=== PATIENT | female | born 1980 | race Caucasian/White ===

== ENCOUNTER → 2016-06-11 | Outpatient (CLI) | payer BC ==
[~2016-06-11] MED LIST: CALC500C70 PO; INSDGI SC; INSUINJ14 SC; LORA-741 PO; MAGN400T6 PO; MISCCAP80 PO; MULT-506 PO; OMEG10007 PO; RANI150T3 PO; RIFA200T2 PO; ZINC1TAB4 PO
== END | disposition home or self-care (01) ==
LOC: C.PAPS 10:19
PROVIDERS: ATTEND Obstetrics & Gynecology
DX: Z01.419 Encounter for gynecological examination (general) (routine) without abnormal findings (principal); R87.612 Low grade squamous intraepithelial lesion on cytologic smear of cervix (LGSIL)

== ENCOUNTER → 2016-06-27 | Outpatient (CLI) | payer BC | END | disposition home or self-care (01) | LOC: C.PATHSPEC 13:17 | PROVIDERS: ATTEND Obstetrics & Gynecology | DX: R87.612 Low grade squamous intraepithelial lesion on cytologic smear of cervix (LGSIL) (principal) ==

== ENCOUNTER → 2016-08-19 | Day surgery (SDC) | payer BC ==
[2016-08-02 10:52] VITALS: Ht 167.6 cm; Wt 66.8 kg
[~2016-08-19] VITALS: Ht 167.6 cm; Wt 66.8 kg
[~2016-08-19] MED LIST changes: +ACETIC ACID 4% (WHITE VINEGAR) 30ML ONE; +ATROPINE SULFATE 0.1 MG/ML 5ML SYR IV PRN; +EpHEDrine SULFATE INJ 50 MG/ML AMP IV PRN; +FENTANYL CITRATE INJ 50 MCG/1 ML 2 ML VIAL IV PRN; +FENTANYL CITRATE INJ 50 MCG/1 ML 2 ML VIAL ONE; +FERRIC SUBSULFATE 8 GM VIAL ONE; +GLYCOPYRROLATE INJ 0.2 MG/ML VIAL ONE; +IBUPROFEN 600 MG TAB PO PRN; +INSULIN HUMAN REGULAR PER UNIT 2 UNITS in SYRINGE 0 ML IV STA; +IODINE SOLN STRONG 14 ML ONE; +KETOROLAC TROMETHAMINE 30 MG/ML VIAL IV. PRN; +KETOROLAC TROMETHAMINE 30 MG/ML VIAL ONE; +LACTATED RINGER'S 1000ML 1,000 ML IV SCH; +LIDO 2%/EPINEPHRINE 1:100000 20 ML VIAL INFIL ONE; +LIDOCAINE HCL 2% 2 ML VIAL (20MG/ML) ONE; +MIDAZOLAM HCL 1 MG/ML 2ML VIAL ONE; +NEOSTIGMINE METHYLSULFATE 5 MG/5 ML SYR ONE; +NovoLIN-R INSULIN PER UNIT CHARGE ONE; +ONDANSETRON INJ 2 MG/ML 2 ML VIAL IV PRN; +ONDANSETRON INJ 2 MG/ML 2 ML VIAL ONE; +OXYCODONE/ACETAMINOPHEN 5-325 TAB PO PRN; +PROPOFOL IV EMULSION 10 MG/ML 20 ML VIAL IV ONE; -RIFA200T2 PO; +ROCURONIUM BROMIDE 10 MG/ML 5 ML VIAL ONE; +SODIUM CHLORIDE 0.9% 1000ML 1,000 ML IV SCH
--- NOTE | 2016-08-19 08:16 | History & Physical Bridge - [place] ---
H&P Re-Evaluation Bridge Note: I have examined the patient, reviewed the History & Physical and in the interval since the performance of the History & Physical I have noted the following changes of clinical significance: No changes noted
--- NOTE | 2016-08-19 08:58 | [facility] Post Operative Brief Note ---
Immediate Operative Summary Operative Date Aug 19, 2016. Pre-Operative Diagnosis Mild Cervical Dysplasia, +ECC, inadequate colposcopy Post-Operative Diagnosis Same Procedure(s) Performed Loop Electrosurgical Excision Procedure, ECC above LEEP Surgeon Dr. Schilling V Belt Coverer Surgeon(s) none Estimated Blood Loss 0 Findings acetowhite changes noted at 6 o'clock, inadequate colposcopy. Fluids (cc crystalloids) 700 Specimens A. Loop Electrosurgical Excision Procedure (LEEP) B. Endocervical Curettings above Leep Drains none Anesthesia general Complication(s) None Disposition Recovery Room / PACU
--- NOTE | 2016-08-19 09:00 | Discharge Instructions ---
Discharge Instructions Date of Service Aug 19, 2016. Admission Reason for Admission: Cervical Dysplasia, Lgsil Discharge Discharge Diagnosis / Problem: status post surgery Discharge Goals Goal(s): Routine recovery after surgery Activity Recommendations Activity Limitations: as noted below . Instructions / Follow-Up Instructions / Follow-Up ACTIVITY RECOMMENDATIONS: * Avoid tampons, douching, hot tubs, pools, and intercourse until bleeding has stopped and you are seen for 2 week appointment. * May shower as usual. * No strenuous activity for 24-48 hours. After 24-48 hours, you may do anything you feel like doing (driving and sports are okay). SPECIAL CARE INSTRUCTIONS: Special Diet: * Mild nausea may occur in the immediate post-operative period. * Take clear liquids such as tea, cola or bouillon until all nausea has subsided; you may then resume your normal diet. Special Care: * Light bleeding and vaginal spotting can last from a few days to 3-4 weeks. Call your doctor if bleeding becomes heavier than the heaviest part of your period. * Check your temperature twice a day for one week. If it goes above 100.4 degrees Fahrenheit (38.0 Celsius), notify your doctor. * Call your doctor's office for an appointment for 2 weeks after your surgery. FOLLOW-UP VISIT: Call your doctor's office for an appointment for 2 weeks after your surgery. Current Hospital Diet Patient's current hospital diet: Discharge Diet Recommended Diet: Regular Diet Procedures Procedures Performed: Loop Electrosurgical Excision Procedure, ECC above LEEP Pending Studies Studies pending at discharge: yes List of pending studies: pathology Medical Emergencies . Who to Call and When: Medical Emergencies: If at any time you feel your situation is an emergency, please call 911 immediately. . Non-Emergent Contact Non-Emergency issues call your: On Car Supervisor . . "Provider Documentation" section prepared by Juana Schilling. VTE Core Measure Inpt VTE Proph given/why not?: Treatment not indicated
--- NOTE | 2016-08-19 09:05 | Medical Student: [facility] ---
Immediate Operative Summary Operative Date Aug 19, 2016. Pre-Operative Diagnosis Mild cervical dysplasia with positive endocervical curettings Post-Operative Diagnosis Same Procedure(s) Performed Loop Electrosurgical Excision Procedure Surgeon Juana Schilling MD Issuing Operator Surgeon(s) none Estimated Blood Loss none Findings Mild acetowhite changes noted on ectocervix; otherwise normal anatomy Fluids (cc crystalloids) 700mL Lactated ringers Specimens LEEP specimen; Endocervical curettings above LEEP Drains none Anesthesia General Complication(s) None Disposition Recovery Room / PACU
--- NOTE | 2016-08-19 09:46 | OPERATIVE REPORT ---
DATE OF OPERATION: 08/19/2016 PREOPERATIVE DIAGNOSES: 1. Mild cervical dysplasia. 2. Positive endocervical curettage for atypical cells. 3. Inadequate colposcopy. POSTOPERATIVE DIAGNOSES: Same. PROCEDURES: 1. LEEP. 2. ECC above LEEP. ANESTHESIA: General. INTRAVENOUS FLUIDS: 700 mL. ESTIMATED BLOOD LOSS: Zero. FINDINGS: Acetowhite changes, mild at 6 o'clock position, inadequate colposcopy. INDICATIONS FOR PROCEDURE: A 36-year-old 0 with a history of mild dysplasia on biopsy and positive endocervical curettage for abnormal cells and inadequate colposcopy for planned LEEP procedure. The patient was unable to tolerate well colposcopy in the office and therefore preferred anesthesia for her LEEP procedure. Continued close clinical followup was an option; however, the patient has had the findings of the mild dysplasia on cervical biopsy with positive ECC since 2014. She had elected conservative follow up previously. She is nulligravid. DESCRIPTION OF PROCEDURE: The patient taken to the operating room and identified. After adequate general anesthesia was obtained, she was placed in the dorsal lithotomy position. A coated speculum was placed in the vagina. Cervix was visualized and cleansed with diluted vinegar solution. A colposcopy took place with the findings as noted above. A circumferential injection of 2% lidocaine with epinephrine then took place. The wire loop was passed through the cervix to perform the LEEP procedure. An ECC was also performed above the level of LEEP and sent as a separate specimen. The LEEP bed was cauterized with ball cautery. Monsel's was applied. The patient tolerated the procedure well. The speculum was removed and then the instruments were removed. She was returned to supine position, awoke from anesthesia and transferred to the recovery room in stable condition. All sponge, lap and needle counts were correct x2. I attest to the content of the Intraoperative Record and any orders documented therein. Any exceptio ns are noted below.
--- NOTE | 2016-08-19 09:59 | Medical Student: [facility] ---
Immediate Operative Summary Operative Date Aug 19, 2016. Pre-Operative Diagnosis Mild cervical dysplasia with positive endocervical curettings Post-Operative Diagnosis Same Procedure(s) Performed Loop electrosurgical excision procedure, endocervical curettage Surgeon Juana Schilling MD Gifts Officer Surgeon(s) None Estimated Blood Loss 0mL Findings Mild acetowhite changes noted on ectocervix Anatomy otherwise normal as visualized Fluids (cc crystalloids) 700mL Specimens LEEP specimen; endocervical curettings above LEEP Drains None Anesthesia General anesthesia with endotracheal intubation Complication(s) None Disposition Recovery Room / PACU
[2016-08-19 10:07] VITALS: TEMP 37.4
--- NOTE | 2016-08-19 10:07 | Anesthesia Progress Nt - [facility] ---
Anesthesia Post Op Note Date & Time Aug 19, 2016 at 10:08 Vital Signs Pain Intensity: 0 Vital Signs Past 12 Hours Date Time Temp Pulse Resp B/P Pulse Ox O2 Delivery O2 Flow Rate FiO2 08/19/16 09:58 56 13 08/19/16 09:58 56 13 97 08/19/16 09:58 37.1 60 13 92/63 97 Room Air 08/19/16 09:56 92/63 08/19/16 09:53 55 14 98 08/19/16 09:53 56 14 08/19/16 09:51 101/64 08/19/16 09:48 55 11 97 08/19/16 09:48 55 11 08/19/16 09:46 94/65 08/19/16 09:43 53 6 08/19/16 09:43 53 6 97 08/19/16 09:41 103/67 08/19/16 09:38 55 14 99 08/19/16 09:38 55 14 08/19/16 09:36 113/68 08/19/16 09:33 55 19 08/19/16 09:33 58 19 100 08/19/16 09:31 109/67 08/19/16 09:28 49 14 100 08/19/16 09:28 49 14 08/19/16 09:26 99/72 08/19/16 09:23 52 15 100 08/19/16 09:23 52 15 08/19/16 09:21 106/68 08/19/16 09:18 64 14 08/19/16 09:18 63 14 100 08/19/16 09:16 113/65 08/19/16 09:13 59 16 08/19/16 09:13 59 16 100 08/19/16 09:11 111/62 08/19/16 09:08 72 16 100 08/19/16 09:08 72 16 08/19/16 09:06 113/60 08/19/16 09:03 91 16 100 08/19/16 09:03 91 16 08/19/16 09:01 116/67 08/19/16 08:59 121/68 08/19/16 08:58 36.8 102 16 121/68 100 Diffusion Mask 6 08/19/16 06:35 36.9 68 16 104/61 98 Room Air Notes Mental Status: alert / awake / arousable, participated in evaluation Pt Amnestic to Procedure: Yes Nausea / Vomiting: adequately controlled Pain: adequately controlled Airway Patency, RR, SpO2: stable & adequate BP & HR: stable & adequate Hydration State: stable & adequate Anesthetic Complications: no major complications apparent
[2016-08-19 10:33] VITALS: BP 106/71; PULSE 55; O2SAT 100
== END | disposition home or self-care (01) ==
LOC: X.SURG 06:24
PROVIDERS: ATTEND Obstetrics & Gynecology
DX: N87.0 Mild cervical dysplasia (principal); K21.0 Gastro-esophageal reflux disease with esophagitis; E10.43 Type 1 diabetes mellitus with diabetic autonomic (poly)neuropathy; K31.84 Gastroparesis; Z87.42 Personal history of other diseases of the female genital tract; Z82.49 Family history of ischemic heart disease and other diseases of the circulatory system; Z79.899 Other long term (current) drug therapy

== ENCOUNTER → 2016-10-03 | Outpatient (CLI) | payer BC ==
[~2016-10-03] MED LIST changes: -ACETIC ACID 4% (WHITE VINEGAR) 30ML ONE; -ATROPINE SULFATE 0.1 MG/ML 5ML SYR IV PRN; -EpHEDrine SULFATE INJ 50 MG/ML AMP IV PRN; -FENTANYL CITRATE INJ 50 MCG/1 ML 2 ML VIAL IV PRN; -FENTANYL CITRATE INJ 50 MCG/1 ML 2 ML VIAL ONE; -FERRIC SUBSULFATE 8 GM VIAL ONE; -GLYCOPYRROLATE INJ 0.2 MG/ML VIAL ONE; -IBUPROFEN 600 MG TAB PO PRN; -INSULIN HUMAN REGULAR PER UNIT 2 UNITS in SYRINGE 0 ML IV STA; -IODINE SOLN STRONG 14 ML ONE; -KETOROLAC TROMETHAMINE 30 MG/ML VIAL IV. PRN; -KETOROLAC TROMETHAMINE 30 MG/ML VIAL ONE; -LACTATED RINGER'S 1000ML 1,000 ML IV SCH; -LIDO 2%/EPINEPHRINE 1:100000 20 ML VIAL INFIL ONE; -LIDOCAINE HCL 2% 2 ML VIAL (20MG/ML) ONE; -MIDAZOLAM HCL 1 MG/ML 2ML VIAL ONE; -NEOSTIGMINE METHYLSULFATE 5 MG/5 ML SYR ONE; -NovoLIN-R INSULIN PER UNIT CHARGE ONE; -ONDANSETRON INJ 2 MG/ML 2 ML VIAL IV PRN; -ONDANSETRON INJ 2 MG/ML 2 ML VIAL ONE; -OXYCODONE/ACETAMINOPHEN 5-325 TAB PO PRN; -PROPOFOL IV EMULSION 10 MG/ML 20 ML VIAL IV ONE; -ROCURONIUM BROMIDE 10 MG/ML 5 ML VIAL ONE; -SODIUM CHLORIDE 0.9% 1000ML 1,000 ML IV SCH
--- NOTE | 2016-10-03 13:47 | DIAGNOSTIC IMAGING REPORT ---
RIGHT HIP UNILATERAL MIN 2 VIEWS CLINICAL HISTORY: Right hip pain. COMPARISON: None FINDINGS: Alignment of the right hip is anatomic. There is no fracture or suspicious lesion. The joint space is preserved. There is mild osteophytosis. Pelvic calcifications likely reflect phleboliths. IMPRESSION: 1. No acute fracture. 2. Preserved right hip joint space with minimal osteophytosis. Electronically signed by: Calvin Wilson M.D. 10/03/2016 1:46 PM Dictated Date/Time: 10/03/2016 1:44 PM
== END | disposition home or self-care (01) ==
LOC: C.RDSM 13:33
PROVIDERS: ATTEND Family Medicine
DX: M25.551 Pain in right hip (principal)

== ENCOUNTER → 2016-11-15 | Outpatient (CLI) | payer BC ==
--- NOTE | 2016-11-15 16:36 | DIAGNOSTIC IMAGING REPORT ---
RIGHT KNEE 4 VIEWS HISTORY: RIGHT KNEE PAIN Right COMPARISON: None. FINDINGS: There is no fracture or dislocation. Soft tissues are unremarkable. No radiopaque foreign bodies. No knee effusion. IMPRESSION: No fractures. Electronically signed by: Jacinto Bennett M.D. 11/15/2016 4:35 PM Dictated Date/Time: 11/15/2016 4:33 PM
== END | disposition home or self-care (01) ==
LOC: C.RDSM 16:10
PROVIDERS: ATTEND Family Medicine
DX: M25.561 Pain in right knee (principal); M25.551 Pain in right hip

== ENCOUNTER → 2017-02-14 | Outpatient (CLI) | payer BC | END | disposition home or self-care (01) | LOC: C.LAB1850 13:41 | PROVIDERS: ATTEND Internal Medicine Endocrinology, Diabetes & Metabolism | DX: E10.9 Type 1 diabetes mellitus without complications (principal) ==

== ENCOUNTER → 2017-03-05 | Outpatient (CLI) | payer BC | LOC: C.LAB1850 09:57 | PROVIDERS: ATTEND Specialist | DX: Z31.41 Encounter for fertility testing (principal) ==

== ENCOUNTER → 2017-03-26 | Outpatient (CLI) | payer BC | END | disposition home or self-care (01) | LOC: C.LAB1850 09:12 | PROVIDERS: ATTEND Obstetrics & Gynecology Reproductive Endocrinology | DX: Z31.41 Encounter for fertility testing (principal) ==

== ENCOUNTER → 2017-06-13 | Outpatient (CLI) | payer OTHER | END | disposition home or self-care (01) | LOC: C.PAPS 16:44 | PROVIDERS: ATTEND Obstetrics & Gynecology | DX: Z01.419 Encounter for gynecological examination (general) (routine) without abnormal findings (principal) ==

== ENCOUNTER → 2017-10-10 | Outpatient (CLI) | payer OTHER ==
--- NOTE | 2017-10-10 08:43 | DIAGNOSTIC IMAGING REPORT ---
L PELVIS UNI HIP 2_3 V CLINICAL HISTORY: 37 years-old Female presenting with LEFT HIP PAIN. TECHNIQUE: Single frontal view of the pelvis and frontal and frog-leg lateral views of the left hip were obtained. COMPARISON: Plain radiographs of the right hip from 10/03/2016. FINDINGS: Sacroiliac joints, pubic symphysis, and hip joints congruent. Arcuate lines intact. Lower lumbar spine normal. Moderate stool burden evident. The bony pelvis is intact. No advanced degenerative change. IMPRESSION: 1. No acute osseous injury. 2. No significant degenerative changes of the left hip. Electronically signed by: Serge Riggs M.D. 10/10/2017 8:42 AM Dictated Date/Time: 10/10/2017 8:38 AM
== END | disposition home or self-care (01) ==
LOC: C.RDSM 08:20
PROVIDERS: ATTEND Family Medicine
DX: M25.552 Pain in left hip (principal)